=== PATIENT | male | born 1970 | race Two or more races ===

== ENCOUNTER 2022-10-09 17:09 | Emergency (ER) | payer OTHER ==
[~2022-10-09] VITALS: Ht 167.6 cm; Wt 77.1 kg
--- NOTE | 2022-10-09 17:20 | NUR ---
[id number] from home for generalized abdominal pain x 7 days. pt has hx of pancreatits. breathing even and unlabored. pt connected to the monitor. vital signs wnl. awaiting md for eval.
--- NOTE | 2022-10-09 17:22 | NUR ---
iv access established, 20g right ac, blood drawn and sent to lab.
[2022-10-09] MEDS ORDERED: ONDANSETRON HCL/PF 4 MG/2 ML VIAL IVP ONE (17:30)
[2022-10-09] MEDS ORDERED: IV NS 0.9% 1,000 ML BAG IV ONE (17:30)
[2022-10-09] MEDS ORDERED: MORPHINE SULFATE INJ 2 MG/ML DISP.SYRIN IV ONE ×2 (17:30→20:30)
[2022-10-09] MEDS ORDERED: MORPHINE SULFATE INJ 4 MG/ML DISP.SYRIN ONE ×2 (17:40→20:34)
[2022-10-09] MEDS ORDERED: ONDANSETRON HCL/PF 4 MG/2 ML VIAL ONE (17:40)
[2022-10-09 17:51] LABS: BASOPHILS % (AUTO) 1.3 % (0.0-2.0); EOSINOPHILS % (AUTO) 0.2 % (0.0-6.0); HEMATOCRIT 43 % (39-51); MEAN CORPUSCULAR HGB CONC 33 g/dl (31.0-36.0); MEAN CORPUSCULAR VOLUME 90 fL (80-96); MONOCYTES # (AUTO) 0.2 K/uL (0.1-1.30); MONOCYTES % (AUTO) 6.5 % (2.0-12.0); NEUTROPHILS # (AUTO) 2.3 K/uL (1.8-8.9); PLATELET COUNT (AUTO) 68 K/uL (150-450); RED BLOOD CELL COUNT(AUTO) 4.78 MIL/uL (4.5-6.0); WHITE BLOOD COUNT (AUTO) 3.5 K/uL (4.3-11.0)
[2022-10-09 17:57] LABS: CALCIUM, SERUM 8.9 mg/dL (8.5-10.1); CREATININE 0.8 mg/dL (0.6-1.3); POTASSIUM 3.4 mmol/L (3.5-5.1)
[2022-10-09 18:04] LABS: ALBUMIN 3.9 g/dL (3.4-5.0); BILIRUBIN,DIRECT 0.2 mg/dL (0.0-0.2); BILIRUBIN,TOTAL 0.8 mg/dL (0.2-1.0); TOTAL PROTEIN, SERUM 8.2 g/dL (6.4-8.2)
[2022-10-09] MEDS ORDERED: IV NS 0.9% 1,000 ML IV ONE (18:30)
[2022-10-09 18:38] VITALS: TEMP 98.7
[2022-10-09] MEDS ORDERED: KETOROLAC TROMETHAMINE INJ 30 MG/ML VIAL IV ONE ×2 (19:00→22:00)
[2022-10-09] MEDS: Magnesium 1GM/D5W 100ML PREMIX 100 ML IV SCH ×2 (19:00→19:32)
[2022-10-09] MEDS ORDERED: Magnesium 1GM/D5W 100ML PREMIX 100 ML IV ONE ×2 (19:02→19:30)
--- NOTE | 2022-10-09 19:14 | NUR ---
pt taken to ct via [facility].
[2022-10-09] MEDS ORDERED: KETOROLAC TROMETHAMINE INJ 30 MG/ML VIAL ONE ×2 (19:30→22:19)
[2022-10-09 20:57] LABS: BAND % (MANUAL) 1 % (0.0-5.0); LYMPHOCYTES % (MANUAL) 31 % (16-48); MONOCYTES % (MANUAL) 2 % (0-11.0); NEUTROPHILS % (MANUAL) 66 (42-76)
--- NOTE | 2022-10-09 21:31 | NUR ---
AMBER ON THE PHONE WITH DR MCDANIEL AT [facility]
--- NOTE | 2022-10-09 22:58 | NUR ---
PT GOT ACCEPTED AT [facility] UNDER CARE OF DR MCDANIEL, GOING TO RM [id number]. # FOR REPORT: [phone]. TRANSPORTATION AUTH NUMBER: [id number]. [facility] ETA: 45-60 MIN
--- NOTE | 2022-10-09 23:39 | NUR ---
REPORT GIVEN TO SEJAL AT [facility]
--- NOTE | 2022-10-10 | NUR ---
[facility] AT BED SIDE TO P/U THE PT
[2022-10-10 00:05] VITALS: BP 147/92
== END 2022-10-10 00:39 | disposition short-term general hospital (02) ==
LOC: ER 17:12
DX: K85.90 Acute pancreatitis without necrosis or infection, unspecified (principal); F10.99 Alcohol use, unspecified with unspecified alcohol-induced disorder; Z60.2 Problems related to living alone; Y90.8 Blood alcohol level of 240 mg/100 ml or more
CPT/HCPCS: 99285; 96365; 96361; 96375; 96376; 74176; 85025; 80048; 83690; 80076; 83735; 85007; 36415; 80320; J2270 ×2; J1885 ×2; J2405; J7030; J7050; J3475; G0480

== ENCOUNTER 2023-11-05 01:56 | Emergency (ER) | payer OTHER ==
[~2023-11-05] VITALS: Ht 167.6 cm; Wt 77.1 kg
[2023-11-05] MEDS: IV NS 0.9% 1,000 ML IV ONE ×2 (02:55→04:04)
[2023-11-05 02:59] LABS: BASOPHILS # (AUTO) 0.1 K/uL (0.0-0.2); EOSINOPHILS % (AUTO) 0.2 % (0.0-6.0); HEMATOCRIT 38 % (39-51); HEMOGLOBIN 13.2 g/dL (13.5-17.5); LYMPHOCYTES # (AUTO) 1.6 K/uL (0.8-4.8); LYMPHOCYTES % (AUTO) 43.9 % (20.0-44.0); MEAN CORPUSCULAR HEMOGLOBIN 31 PG (26.0-33.0); MEAN CORPUSCULAR HGB CONC 35 g/dl (31.0-36.0); MEAN CORPUSCULAR VOLUME 88 fL (80-96); MONOCYTES # (AUTO) 0.2 K/uL (0.1-1.30); MONOCYTES % (AUTO) 5.9 % (2.0-12.0); NEUTROPHILS # (AUTO) 1.8 K/uL (1.8-8.9); PLATELET COUNT (AUTO) 76 K/uL (150-450); RED BLOOD CELL COUNT(AUTO) 4.27 MIL/uL (4.5-6.0); RED CELL DISTRIBUTION WIDTH 15.1 % (11.5-15.0); WHITE BLOOD COUNT (AUTO) 3.7 K/uL (4.3-11.0)
[2023-11-05 03:20] LABS: CALCIUM, SERUM 8.6 mg/dL (8.5-10.1); CREATININE 0.8 mg/dL (0.6-1.3); POTASSIUM 3.2 mmol/L (3.5-5.1)
[2023-11-05 03:21] LABS: BASOPHILS % (MANUAL) 0 % (0.0-2.0); EOSINOPHILS % (MANUAL) 0 % (0-4); LYMPHOCYTES % (MANUAL) 39 % (16-48); MONOCYTES % (MANUAL) 8 % (0-11.0); NEUTROPHILS % (MANUAL) 53 (42-76); PLATELET ESTIMATE DECREASED
[2023-11-05 03:36] LABS: ALBUMIN 3.6 g/dL (3.4-5.0); BILIRUBIN,TOTAL 1.3 mg/dL (0.2-1.0); MAGNESIUM 2.1 mg/dL (1.8-2.4); TOTAL PROTEIN, SERUM 7.7 g/dL (6.4-8.2)
[2023-11-05] MEDS ORDERED: POTASSIUM CHLORIDE 20 MEQ TAB.PRT.SR PO ONE (04:04)
[2023-11-05] MEDS: POTASSIUM CHLORIDE 20 MEQ TAB.PRT.SR PO ONE (04:04)
[2023-11-05 07:05] LABS: APPEARANCE,URINE CLEAR (CLEAR); BILIRUBIN,URINE NEGATIVE (NEGATIVE); BLOOD, URINE TRACE-INTA Ery/uL (NEGATIVE); COLOR,URINE YELLOW (YELLOW); KETONES,URINE NEGATIVE (NEGATIVE); LEUKOCYTE ESTERASE ,URINE NEGATIVE (NEGATIVE); NITRITE, URINE NEGATIVE (NEGATIVE); PH,URINE 5.5 (5.0-8.0); PROTEIN,URINE NEGATIVE (NEGATIVE); UGLUCOSE NEGATIVE (NEGATIVE)
[2023-11-05 08:25] LABS: AMPHETAMINE, URINE NEGATIVE (NEGATIVE); BARBITURATE, URINE NEGATIVE (NEGATIVE); BENZODIAZEPINE, URINE NEGATIVE (NEGATIVE); CANNABINOID, URINE NEGATIVE (NEGATIVE); COCCAINE, URINE NEGATIVE (NEGATIVE); PHENCYCLIDINE SCREEN,URINE NEGATIVE (NEGATIVE)
[2023-11-05 08:26] LABS: OPIATE, URINE POSITIVE (NEGATIVE)
[2023-11-05 08:30] LABS: ADD URINE CULTURE NO; BACTERIA,URINE Rare /HPF (None Seen); SQUAMOUS EPITHELIAL CELL,UR Few /HPF (None Seen); WBC,URINE 0-2 /HPF (0-3)
[2023-11-05 08:31] VITALS: BP 127/89; TEMP 98.5; O2SAT 95
== END 2023-11-05 08:31 | disposition home or self-care (01) ==
LOC: ER 01:58
DX: F10.129 Alcohol abuse with intoxication, unspecified (principal); D69.6 Thrombocytopenia, unspecified; D64.9 Anemia, unspecified; Z60.2 Problems related to living alone; Y90.8 Blood alcohol level of 240 mg/100 ml or more
CPT/HCPCS: 99284; 96360; 96361; 93005; 85025; 83735; 85007; 81001; 36415; 80053; 80320; 80307; J7030; G0480

== ENCOUNTER 2024-02-19 19:07 | Emergency (ER) | payer OTHER ==
[~2024-02-19] VITALS: Ht 165.1 cm; Wt 68.0 kg
[2024-02-19 19:50] LABS: BASOPHILS # (AUTO) 0.1 K/uL (0.0-0.2); BASOPHILS % (AUTO) 2.6 % (0.0-2.0); EOSINOPHILS % (AUTO) 0.2 % (0.0-6.0); HEMATOCRIT 37 % (39-51); HEMOGLOBIN 12.6 g/dL (13.5-17.5); LYMPHOCYTES # (AUTO) 1.5 K/uL (0.8-4.8); MEAN CORPUSCULAR HEMOGLOBIN 31 PG (26.0-33.0); MEAN CORPUSCULAR HGB CONC 34 g/dl (31.0-36.0); MEAN CORPUSCULAR VOLUME 90 fL (80-96); MONOCYTES # (AUTO) 0.2 K/uL (0.1-1.30); MONOCYTES % (AUTO) 6.5 % (2.0-12.0); NEUTROPHILS # (AUTO) 1.6 K/uL (1.8-8.9); NEUTROPHILS % (AUTO) 46.7 % (43.0-81.0); PLATELET COUNT (AUTO) 69 K/uL (150-450); RED BLOOD CELL COUNT(AUTO) 4.09 MIL/uL (4.5-6.0); RED CELL DISTRIBUTION WIDTH 17.2 % (11.5-15.0); WHITE BLOOD COUNT (AUTO) 3.3 K/uL (4.3-11.0)
[2024-02-19] MEDS: IV NS 0.9% 1,000 ML BAG IV ONE (19:54)
[2024-02-19] MEDS ORDERED: ONDANSETRON HCL/PF 4 MG/2 ML VIAL ONE (19:56)
[2024-02-19] MEDS: ONDANSETRON HCL/PF 4 MG/2 ML VIAL IVP ONE (19:57)
[2024-02-19 19:59] LABS: CALCIUM, SERUM 8.2 mg/dL (8.5-10.1); CREATININE 0.8 mg/dL (0.6-1.3)
[2024-02-19 20:05] LABS: ALBUMIN 3.8 g/dL (3.4-5.0); BILIRUBIN,DIRECT 0.7 mg/dL (0.0-0.2); BILIRUBIN,TOTAL 1.1 mg/dL (0.2-1.0); TOTAL PROTEIN, SERUM 7.8 g/dL (6.4-8.2)
[2024-02-19] MEDS: POTASSIUM CHLORIDE 20 MEQ TAB.PRT.SR PO ONE (20:28)
[2024-02-19 20:36] LABS: ANISOCYTOSIS 1+; EOSINOPHILS % (MANUAL) 1 % (0-4); LYMPHOCYTES % (MANUAL) 41 % (16-48); MONOCYTES % (MANUAL) 5 % (0-11.0); NEUTROPHILS % (MANUAL) 53 (42-76); PLATELET ESTIMATE DECREASED
[2024-02-19 21:00] VITALS: BP 125/78; TEMP 98; O2SAT 96
== END 2024-02-19 21:02 | disposition home or self-care (01) ==
LOC: ER 19:10
DX: F10.10 Alcohol abuse, uncomplicated (principal); E87.6 Hypokalemia; R10.13 Epigastric pain; M79.10 Myalgia, unspecified site; Z87.19 Personal history of other diseases of the digestive system; Z60.2 Problems related to living alone; Y90.9 Presence of alcohol in blood, level not specified
CPT/HCPCS: 99283; 96374; 96361; 85025; 80048; 83690; 80076; 36415; 85007; J2405; J7030

== ENCOUNTER 2024-03-30 13:31 | Emergency (ER) | payer OTHER ==
[~2024-03-30] VITALS: Ht 157.5 cm; Wt 64.4 kg
[2024-03-30 13:56] VITALS: TEMP 97.7
[2024-03-30] MEDS ORDERED: LORAZEPAM INJ 2 MG/ML VIAL ONE ×4 (14:24→17:02)
[2024-03-30] MEDS: IV NS 0.9% 1,000 ML BAG IV ONE ×2 (14:26→17:18)
[2024-03-30] MEDS: LORAZEPAM INJ 2 MG/ML VIAL IVP ONE (14:33)
[2024-03-30 15:02] LABS: EOSINOPHILS % (AUTO) 0.1 % (0.0-6.0); HEMATOCRIT 34 % (39-51); HEMOGLOBIN 11.8 g/dL (13.5-17.5); LYMPHOCYTES # (AUTO) 0.4 K/uL (0.8-4.8); LYMPHOCYTES % (AUTO) 10.7 % (20.0-44.0); MEAN CORPUSCULAR HEMOGLOBIN 32 PG (26.0-33.0); MEAN CORPUSCULAR HGB CONC 35 g/dl (31.0-36.0); MEAN CORPUSCULAR VOLUME 93 fL (80-96); MONOCYTES # (AUTO) 0.2 K/uL (0.1-1.30); MONOCYTES % (AUTO) 6.4 % (2.0-12.0); NEUTROPHILS # (AUTO) 3.2 K/uL (1.8-8.9); NEUTROPHILS % (AUTO) 81.8 % (43.0-81.0); RED BLOOD CELL COUNT(AUTO) 3.66 MIL/uL (4.5-6.0); WHITE BLOOD COUNT (AUTO) 3.9 K/uL (4.3-11.0)
[2024-03-30 15:07] LABS: LIPASE 194 U/L (16-77)
[2024-03-30 15:09] LABS: ALCOHOL, BLOOD < 3 mg/dL (0-10); CALCIUM, SERUM 9.2 mg/dL (8.5-10.1); CARBON DIOXIDE 22 mmol/L (21-32); CHLORIDE 97 mmol/L (98-107); CREATININE 1.3 mg/dL (0.6-1.3); GLUCOSE 188 mg/dL (74-106); POTASSIUM 3.1 mmol/L (3.5-5.1); SODIUM SERUM 139 mmol/L (136-145); UREA NITROGEN, BLOOD 11 mg/dL (7-18)
[2024-03-30 15:17] LABS: PLATELET COUNT (AUTO) 29 K/uL (150-450)
[2024-03-30 15:54] LABS: BASOPHILS % (MANUAL) 0 % (0.0-2.0); EOSINOPHILS % (MANUAL) 0 % (0-4); LYMPHOCYTES % (MANUAL) 8 % (16-48); MONOCYTES % (MANUAL) 6 % (0-11.0); NEUTROPHILS % (MANUAL) 86 (42-76); PLATELET ESTIMATE DECREASED
[2024-03-30 15:55] LABS: ANISOCYTOSIS 1+
[2024-03-30] MEDS: LORAZEPAM INJ 2 MG/ML VIAL IV ONE ×2 (16:07→17:17)
[2024-03-30] MEDS: POTASSIUM CL. PREMIX PERIPHER. 50 ML IV SCH (16:30)
[2024-03-30 19:35] VITALS: BP 139/77; O2SAT 97
== END 2024-03-30 19:45 | disposition short-term general hospital (02) ==
LOC: ER 13:35
DX: R56.9 Unspecified convulsions (principal); F10.939 Alcohol use, unspecified with withdrawal, unspecified; Z60.2 Problems related to living alone; Y90.0 Blood alcohol level of less than 20 mg/100 ml
CPT/HCPCS: 99285; 96374; 96361; 93005; 71045; 72170; 96376; 72125; 70450; 85025; 80048; 83690; 83735; 85007; 36415; 84484; 80320; J2060 ×4; J7030; J3480; A4223; G0480